=== PATIENT | female | born 1940 | race Two or more races ===

== ENCOUNTER 2017-04-17 01:43 | Emergency (ER) | payer MEDICARE, OTHER ==
[~2017-04-17] VITALS: Ht 154.9 cm; Wt 81.6 kg
[~2017-04-17 01:43] MED LIST: ALBUTEROL SULF8.5 GM INH; LEVAQUIN750 MG ORAL; METFORMIN HCL500 M1 ORAL; METOPROLOL SUCC50 MG ORAL; PROMETHAZI6.25 MG/1 ORAL
--- NOTE | 2017-04-17 02:09 | Emergency Room Report ---
History of Present Illness General Chief Complaint: Pain Source: Patient Present Illness HPI Patient presents with complaints of left upper gingival and facial swelling and pain Patient reports that she call 3 dentist on Monday and is not able to get an appointment to the next 2 weeks pain became worse over the past night and she presents to the ER Denies any visual changes Pain is 6/10 localized to the left upper dental and cheek area Denies any difficulty swallowing she reports questionable fever today Denies any neck pain or photophobia Allergies: Coded Allergies: CODEINE (Verified Allergy, Mild, Rash, 04/29/16) Rash Patient History Past Medical History: see triage record Pertinent Family History: none Last Menstrual Period: none Now: No : 3 Para: 3 Reviewed Nursing Documentation: PMH: Agreed, PSxH: Agreed Nursing Documentation-PMH Hx Hypertension: Yes Hx Asthma: Yes Hx Diabetes: Yes Hx Cancer: No Hx Gastrointestinal Problems: No Hx Neurological Problems: No Review of Systems All Other Systems: negative except mentioned in HPI Physical Exam Vital Signs Date Time Temp Pulse Resp B/P (MAP) Pulse Ox O2 Delivery O2 Flow Rate FiO2 04/17/17 01:50 98.2 65 18 179/84 98 Room Air Sp02 EP Interpretation: reviewed, normal General Appearance: well appearing, no apparent distress Head: normocephalic, atraumatic Eyes: bilateral eye PERRL, bilateral eye EOMI ENT: normal pharynx, no angioedema, other - Patient has dental decay, and appearance of swelling above tooth #14, with gingival edema Neck: full range of motion, supple Respiratory: chest non-tender, lungs clear Cardiovascular #1: regular rate, rhythm Gastrointestinal: non tender, soft Musculoskeletal: normal inspection - no trismus Neurologic: alert, oriented x3, responsive Skin: other - Some swelling to the left upper maxillary area is appreciated Lymphatic: no adenopathy Medical Decision Making Diagnostic Impression: Primary Impression: Dental abscess ER Course Patient's clinical appearance appears to be in line with dental abscess patient is provided with antibiotic ear and pain medicine She requires close dental followup in the next one day And will return with any changes Last Vital Signs Date Time Temp Pulse Resp B/P (MAP) Pulse Ox O2 Delivery O2 Flow Rate FiO2 04/17/17 01:50 98.2 65 18 179/84 98 Room Air Status: improved Disposition: HOME, SELF-CARE Condition: Improved Scripts Ibuprofen* (MOTRIN*) 600 Mg Tablet 600 MG ORAL Q8H Y for For Pain, #20 TAB 0 Refills Prov: LASHAWN GOLDSMITH D.O. 04/17/17 Clindamycin Hcl (CLINDAMYCIN HCL) 300 Mg Capsule 300 MG ORAL THREE TIMES A DAY, #30 CAP Prov: LASHAWN GOLDSMITH D.O. 04/17/17 Referrals: NON PHYSICIAN (PCP) Additional Instructions: Patient is provided with the discharge instructions notified to follow up with primary doctor in the next 2-3 days otherwise return to the er with any worsening symptoms. Please note that this report is being documented using deeplocal technology. This can lead to erroneous entry secondary to incorrect interpretation by the dictating instrument. LASHAWN GOLDSMITH D.O. Apr 17, 2017 02:09
[2017-04-17 02:11] VITALS: BP 179/84
[2017-04-17] MEDS ORDERED: Clindamycin 150mg cap ORAL SCH (02:15)
[2017-04-17] MEDS ORDERED: IBUPROFEN600 MG ORAL (02:23)
[2017-04-17] MEDS ORDERED: CLINDAMYCIN HC300 MG ORAL (02:23)
[2017-04-17 02:27] VITALS: BP 179/84
== END 2017-04-17 02:27 | disposition home or self-care (01) ==
LOC: EMR 02:03
DX: K04.7 Periapical abscess without sinus (principal); R22.9 Localized swelling, mass and lump, unspecified; Z88.5 Allergy status to narcotic agent; I10 Essential (primary) hypertension; J45.909 Unspecified asthma, uncomplicated; E11.9 Type 2 diabetes mellitus without complications
CPT/HCPCS: 99284